=== PATIENT | male | born 1965 | race Caucasian/White ===

== ENCOUNTER 2017-02-24 06:30 | Emergency (ER) | payer OTHER ==
[~2017-02-24] VITALS: Ht 177.8 cm; Wt 87.5 kg
[2017-02-24 06:33] VITALS: Ht 177.8 cm; Wt 87.5 kg
--- NOTE | 2017-02-24 07:08 | ERD ---
ER Documentation Chief Complaint Chief Complaint palpitations with SOB and "mild chest Pressure" x this AM, HPI 51 year old male with a hx of HTN and "irregular heart beat" presenting to the ER with palpitations and shortness of breath that started early this morning. He states he was in the restroom. When he was walking back from the restroom suddenly he started having palpitations and shortness of breath but denies any associated chest pain. He was not diaphoretic. No nausea or vomiting. He took his blood pressure and noticed it was high. He waited a while and repeated his blood pressure and noticed it was not going down, which is why he came to the ER. Currently he states he is asymptomatic with no palpitations, chest pain, or shortness of breath. He last took his blood pressure medications last night. States he has palpitations frequently, mostly in the mornings, but this lasted longer than usual. ROS All systems reviewed and are negative except as per history of present illness. Allergies Allergies: Coded Allergies: Iodine and Iodide Containing Produc (Verified Allergy, Severe, ITCHING, ) Penicillins (Verified Allergy, Severe, itching/rash, 02/24/17) PMhx/Soc History of Surgery: Yes (Bilateral shoulder, knee) Anesthesia Reaction: No Hx Neurological Disorder: No Hx Respiratory Disorders: No Hx Cardiac Disorders: Yes (HTN, Arrhythmia) Hx Alcohol Use: No Hx Substance Use: No Hx Tobacco Use: No FmHx Family History: coronary disease Physical Exam Vitals Vital Signs Date Time Temp Pulse Resp B/P Pulse Ox O2 Delivery O2 Flow Rate FiO2 02/24/17 08:28 75 20 142/89 100 Room Air 02/24/17 06:33 98.3 80 16 186/97 98 Physical Exam Const: Well-appearing, no apparent distress Head: Atraumatic Eyes: Normal Conjunctiva ENT: Normal External Ears, Nose and Mouth. Neck: Full range of motion..~ No meningismus. No JVD Resp: Clear to auscultation bilaterally Cardio: Regular rate and rhythm, no murmurs. 2+ distal pulses in all 4 extremities Abd: Soft, non tender, non distended. Normal bowel sounds Skin: No petechiae or rashes Back: No midline or flank tenderness Ext: No cyanosis, or edema Neur: Awake and alert Psych: Normal Mood and Affect Result Diagram: 02/24/17 0715 02/24/17 0715 Results 24 hrs Laboratory Tests Test 02/24/17 07:15 White Blood Count 5.410^3/ul Red Blood Count 5.6610^6/ul Hemoglobin 17.2g/dl Hematocrit 50.5% Mean Corpuscular Volume 89.2fl Mean Corpuscular Hemoglobin 30.4pg Mean Corpuscular Hemoglobin Concent 34.1g/dl Red Cell Distribution Width 12.2% Platelet Count 28998^3/UL Mean Platelet Volume 9.7fl Neutrophils % 57.2% Lymphocytes % 33.4% Monocytes % 6.3% Eosinophils % 2.2% Basophils % 0.7% Nucleated Red Blood Cells % 0.0/100WBC Neutrophils # 3.110^3/ul Lymphocytes # 1.810^3/ul Monocytes # 0.310^3/ul Eosinophils # 0.110^3/ul Basophils # 0.010^3/ul Nucleated Red Blood Cells # 0.010^3/ul Sodium Level 146mmol/L Potassium Level 4.2mmol/L Chloride Level 106mmol/L Carbon Dioxide Level 28mmol/L Anion Gap 16 Blood Urea Nitrogen 12mg/dl Creatinine 0.81mg/dl Glucose Level 108mg/dl Calcium Level 9.5mg/dl Troponin I < 0.012ng/ml Procedures/MDM Labs CBC: no anemia or evidence of infection BMP: No evidence of electrolyte abnormality, renal failure, hypoglycemia Troponin within normal limits Chest x-ray shows no significant abnormalities EKG: Rate/Rhythm: Normal Sinus Rhythm QRS, ST, T-waves: Rightward axis, incomplete right bundle branch block, no changes consistent w/ acute ischemia Impression: No evidence of ischemia or arrhythmia [facility] Patient is presenting with palpitations and shortness of breath that have now resolved. Vitals here were notable for hypertension. However I have a low suspicion for acute coronary syndrome, aortic dissection, acute stroke, pulmonary embolism, or hypertensive emergency. PERC negative. All initial labs are normal. The patient has not had recurrent symptoms here. I believe he is stable for discharge at this time with continued outpatient follow-up. He states he does have close follow-up with his primary care physician. Return precautions were given. Patient was discharged in a stable condition Departure Diagnosis: Primary Impression: Palpitations Condition: Stable EKGABRIELA ROBERTSON MD Feb 24, 2017 07:08
--- NOTE | 2017-02-24 07:30 | RADRPT ---
PROCEDURE: XR Chest. CLINICAL INDICATION: Chest pain. TECHNIQUE: AP Portable chest. 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 No focal infiltrates, masses or effusions are present. The mediastinum and heart are normal. No pneumothorax is present. IMPRESSION: 1. No radiographic evidence for acute cardiopulmonary disease RPTAT: HDC .Cindy Perea MD, MD Date Time Electronically viewed and signed by .Cindy Perea MD, MD on 02/24/2017 07:30 .C/
[2017-02-24 08:28] VITALS: BP 142/89; PULSE 75; RESP 20
== END 2017-02-24 09:11 | disposition home or self-care (01) ==
LOC: E/R 06:30
DX: R00.2 Palpitations (principal); I10 Essential (primary) hypertension; R40.2142 Coma scale, eyes open, spontaneous, at arrival to emergency department; R40.2252 Coma scale, best verbal response, oriented, at arrival to emergency department; R40.2362 Coma scale, best motor response, obeys commands, at arrival to emergency department
CPT/HCPCS: 36415; 71010; 80048; 84484; 85025; 93005